=== PATIENT | male | born 1960 | race Caucasian/White ===

== ENCOUNTER → 2023-07-13 | Outpatient (CLI) | payer BC | LOC: M PLAIMG 10:31 | PROVIDERS: ATTEND Internal Medicine Pulmonary Disease | DX: R06.02 Shortness of breath (principal) ==

== ENCOUNTER → 2024-04-30 | Outpatient (CLI) | payer BC | LOC: M RAD 14:51 | PROVIDERS: ATTEND Internal Medicine Pulmonary Disease | DX: Z87.891 Personal history of nicotine dependence (principal) ==

== ENCOUNTER → 2024-05-22 | Outpatient (CLI) | payer BC | LOC: M PLARAD 09:29 | PROVIDERS: ATTEND Otolaryngology | DX: C02.9 Malignant neoplasm of tongue, unspecified (principal) | CPT/HCPCS: 78815; A9552 ==

== ENCOUNTER → 2024-07-22 | Outpatient (CLI) | payer MEDICARE, OTHER ==
[~2024-07-22] MED LIST: ANOR1AER PO; ATOR40TA75 PO; ECOT81TA5 PO; INSU100V6 SQ; LANTINJ4 SC; LISI10TA22 PO; MAGICMW SSP; VENTAER INH
== END ==
LOC: M ONCR 12:55
PROVIDERS: ATTEND General Practice
DX: C02.1 Malignant neoplasm of border of tongue (principal); Z90.49 Acquired absence of other specified parts of digestive tract; F17.210 Nicotine dependence, cigarettes, uncomplicated; Z90.02 Acquired absence of larynx; Z80.1 Family history of malignant neoplasm of trachea, bronchus and lung; Z79.899 Other long term (current) drug therapy; Z79.82 Long term (current) use of aspirin; Z79.4 Long term (current) use of insulin
CPT/HCPCS: 31575; G0463

== ENCOUNTER 2024-07-30 13:43 | Outpatient (RCR) | payer OTHER | END 2024-08-09 | LOC: M ONCR 13:43 | PROVIDERS: ATTEND General Practice | DX: Z51.0 Encounter for antineoplastic radiation therapy (principal); C02.1 Malignant neoplasm of border of tongue ==

== ENCOUNTER 2024-08-01 13:47 | Outpatient (RCR) | payer OTHER | END 2024-08-09 | LOC: M ST 13:47 | PROVIDERS: ATTEND General Practice | DX: R47.89 Other speech disturbances (principal); C02.1 Malignant neoplasm of border of tongue ==

== ENCOUNTER 2024-08-13 13:24 | Outpatient (RCR) | payer OTHER ==
[2024-08-26] MEDS ORDERED: LIDVISCBTL PO (13:34)
[2024-08-26] MEDS ORDERED: OXYC1SOL3 PO (13:35)
[2024-09-09] MEDS ORDERED: FLUC100T3 PO (13:59)
== END 2024-09-09 ==
LOC: M ST 13:24
PROVIDERS: ATTEND General Practice
DX: C02.1 Malignant neoplasm of border of tongue (principal)

== ENCOUNTER → 2024-09-09 | Outpatient (RCR) | payer MEDICARE, OTHER ==
[~2024-09-09] MED LIST changes: +FLUC100T3 PO; +LIDVISCBTL PO; +NYST-38 PO; +OXYC1SOL3 PO
== END ==
LOC: M ONCR 08-14 14:57
PROVIDERS: ATTEND General Practice
DX: Z51.0 Encounter for antineoplastic radiation therapy (principal); C02.1 Malignant neoplasm of border of tongue

== ENCOUNTER 2024-09-30 12:55 | Outpatient (RCR) | payer MEDICARE, OTHER | END 2024-10-09 | LOC: M ONCR 12:55 | PROVIDERS: ATTEND General Practice | DX: Z51.0 Encounter for antineoplastic radiation therapy (principal); C02.1 Malignant neoplasm of border of tongue ==

== ENCOUNTER 2024-10-01 13:50 | Outpatient (RCR) | payer OTHER | END 2024-10-09 | LOC: M ST 13:50 | PROVIDERS: ATTEND General Practice | DX: C02.1 Malignant neoplasm of border of tongue (principal) ==

== ENCOUNTER → 2024-10-15 | Outpatient (CLI) | payer OTHER, MEDICARE | LOC: M ONCR 14:55 | PROVIDERS: ATTEND General Practice | DX: C02.1 Malignant neoplasm of border of tongue (principal); B37.0 Candidal stomatitis; Z92.3 Personal history of irradiation ==

== ENCOUNTER → 2024-12-23 | Outpatient (CLI) | payer MEDICARE, OTHER ==
[2024-12-23 14:25] LABS: ALT/SGPT 43 U/L (7.0-40); AST/SGOT 64 U/L (<34); CALCIUM LEVEL 8.8 MG/DL (8.3-10.6); CARBON DIOXIDE LEVEL 25 MMOL/L (20-31); CHLORIDE LEVEL 98 MMOL/L (98-107); CREATININE FOR GFR 0.80 MG/DL (0.70-1.30); GLOMERULAR FILTRATION RATE > 90.0 (>49); POTASSIUM SERUM 4.1 MMOL/L (3.5-5.1); SODIUM LEVEL 136 MMOL/L (136-145)
== END ==
LOC: M ONCM 13:39
PROVIDERS: ATTEND General Practice
DX: C02.1 Malignant neoplasm of border of tongue (principal)

== ENCOUNTER → 2024-12-30 | Outpatient (CLI) | payer MEDICARE, OTHER ==
[~2024-12-30] MED LIST changes: +ISOVUE-370 76% 100 ML VIAL As Ordered ONE
== END ==
LOC: M RAD 13:49
PROVIDERS: ATTEND General Practice
DX: C02.1 Malignant neoplasm of border of tongue (principal)
CPT/HCPCS: 70491; 71260; Q9967

== ENCOUNTER → 2025-01-31 | Outpatient (CLI) | payer MEDICARE, OTHER ==
[~2025-01-31] MED LIST changes: -ISOVUE-370 76% 100 ML VIAL As Ordered ONE
== END ==
LOC: M ONCR 14:45
PROVIDERS: ATTEND General Practice
DX: C02.1 Malignant neoplasm of border of tongue (principal); F17.218 Nicotine dependence, cigarettes, with other nicotine-induced disorders; Z90.89 Acquired absence of other organs; Z92.3 Personal history of irradiation; Z79.4 Long term (current) use of insulin; Z79.82 Long term (current) use of aspirin; Z79.899 Other long term (current) drug therapy

== ENCOUNTER → 2025-05-16 | Outpatient (CLI) | payer MEDICARE, OTHER ==
[~2025-05-16] MED LIST changes: +TAMS1CAP17 PO
== END ==
LOC: M ONCR 15:16
PROVIDERS: ATTEND General Practice
DX: C02.1 Malignant neoplasm of border of tongue (principal); R33.8 Other retention of urine; R35.0 Frequency of micturition; R39.15 Urgency of urination; Z90.09 Acquired absence of other part of head and neck; Z92.3 Personal history of irradiation; F17.210 Nicotine dependence, cigarettes, uncomplicated; Z79.4 Long term (current) use of insulin; Z79.82 Long term (current) use of aspirin; Z79.899 Other long term (current) drug therapy
CPT/HCPCS: 36415; G0463